=== PATIENT | female | born 1980 ===

== ENCOUNTER 2020-09-20 12:55 | Outpatient (REF) | payer OTHER, MEDICAID, SELFPAY ==
--- NOTE | 2020-09-20 13:01 | MM_ITS ---
EXAMINATION: MM DIAGNOSTIC DIGITAL BREAST TOMOSYNTHESIS, BILATERAL US DIAGNOSTIC ULTRASOUND BREAST, LEFT CLINICAL INFORMATION: 40-year-old female with intermittent burning pain left breast on and off for 2 weeks, currently without symptoms. No palpable mass or discharge. No known family history breast cancer. No prior breast imaging. The lifetime risk of breast cancer based on the Tyrer-Cuzick Model is 10%. COMPARISON: None (current study represents initial baseline exam). TECHNIQUE: Digital breast tomosynthesis is performed in both the craniocaudal and mediolateral oblique views along with computer-aided detection (CAD). Synthesized 2D images are generated from the tomosynthesis. Additional right CC and right MLO views are provided. Ultrasound left breast is targeted to the 11:00 through 5:00 position. Grayscale imaging and color Doppler are performed without and with harmonics. FINDINGS: There are scattered areas of fibroglandular density (ACR BI-RADS breast composition Category b). There are no significant masses, abnormal calcifications, or other abnormalities. The axilla and skin contours are unremarkable. There is no skin thickening or coarsening of the Eleazar's ligaments. Ultrasound left breast demonstrates no cystic or solid mass, architectural abnormality, or focal duct ectasia. No skin thickening or edema tracking in the soft tissue planes. Results are discussed with the patient at time of visit, using an interpreter and translator. MM/MM tomosynthesis diagnostic BI IMPRESSION: No mammographic evidence of malignancy or inflammatory changes. Unremarkable targeted left breast ultrasound. ASSESSMENT: BI-RADS 1: Negative RECOMMENDATION: 1. Patient's intermittent left breast pain should be based on the clinical impression. 2. Otherwise, routine annual screening mammography. This patient's information was entered into a reminder system with a target due date for their next mammogram.
== END 2020-09-20 12:56 | disposition home or self-care (01) ==
LOC: HO.MAMMO 12:55
PROVIDERS: PCP Nurse Practitioner Family; Visit Provider Nurse Practitioner Family
DX: N64.4 Mastodynia (principal); R20.8 Other disturbances of skin sensation
CPT/HCPCS: 76642; 77062; 77066

== ENCOUNTER 2020-10-13 08:00 | Outpatient (RCR) | payer OTHER, MEDICAID, SELFPAY | END 2021-02-23 09:48 | disposition other institution (70) | LOC: HO.PT 08:00 | PROVIDERS: PCP Nurse Practitioner Family; Visit Provider General Practice | DX: M25.512 Pain in left shoulder (principal) | CPT/HCPCS: 97110; 97140; 97162; 97530 ==

== ENCOUNTER 2021-10-13 10:46 | Outpatient (REF) | payer MEDICAID, OTHER, SELFPAY ==
--- NOTE | ~2021-10-13 | MM_ITS ---
EXAMINATION: MM SCREENING DIGITAL BREAST TOMOSYNTHESIS, BILATERAL CLINICAL INFORMATION: Screening. Asymptomatic. The lifetime risk of breast cancer based on the Tyrer-Cuzick Model is 7%. COMPARISON: Mammography: 09/20/2020 (baseline) TECHNIQUE: Digital breast tomosynthesis is performed in both the craniocaudal and mediolateral oblique views along with computer-aided detection (CAD). Synthesized 2D images are generated from the tomosynthesis. FINDINGS: There are scattered areas of fibroglandular density (ACR BI-RADS breast composition Category b). There are no significant masses, abnormal calcifications, or other abnormalities. Parenchymal pattern is similar to prior exam. No significant changes. MM/MM tomosynthesis screening BI IMPRESSION: There are no significant changes from prior study. ASSESSMENT: BI-RADS 1: Negative RECOMMENDATION: Routine annual mammography screening. This patient's information was entered into a reminder system with a target due date for their next mammogram.
== END 2021-10-13 10:47 | disposition home or self-care (01) ==
LOC: HO.MAMMO 10:46
PROVIDERS: Visit Provider Internal Medicine
DX: Z12.31 Encounter for screening mammogram for malignant neoplasm of breast (principal)
CPT/HCPCS: 77063; 77067

== ENCOUNTER 2023-09-18 09:09 | Outpatient (REF) | payer MEDICAID, SELFPAY | END 2023-09-18 09:10 | disposition home or self-care (01) | LOC: HO.LNP 09:09 | PROVIDERS: PCP Internal Medicine; Visit Provider Nurse Practitioner Family | DX: N39.0 Urinary tract infection, site not specified (principal); N20.0 Calculus of kidney | CPT/HCPCS: 81003; 87086; 99212 ==

== ENCOUNTER 2023-09-18 09:09 | Outpatient (AMB) | payer MEDICAID, SELFPAY ==
--- NOTE | 2023-09-18 09:23 | A.OFFVIS_ITS ---
Intake Intake Visit Reasons: Nephrolithiasis Intake Note: New Patient presents for initial visit for nephrolithiasis Urology Medications: none Blood Thinner: none Research Technician Required: Yes Research Technician Name: Merrill CookAnup TEJADA Accompanied by: Self / Same As Patient Allergies No Known Allergies Allergy (Verified 09/18/23 09:59) Medication List - Last Reconciled 09/18/23 by GEOFF Campbell cholecalciferol (vitamin D3) (Vitamin D3) 50 mcg PO DAILY diclofenac sodium 1% topical hydroxyzine HCl 25 mg PO BEDTIME PRN lamotrigine 200 mg PO BID multivit-iron sulf-folic acid 15 mg iron- 400 mcg (Tab-A-Joesph Multivitamin w- iron) 1 tab PO DAILY oxybutynin chloride ER 5 mg PO QPM simvastatin 20 mg PO QPM HPI HPI Comments History of Present Illness Details Marbella is a plesant 43 year old Faroese speaking female patient of Dr Octavio Leon. She has a past medical history of insomnia, vitamin-D deficiency, overweight, mild intermittent asthma, hypercholesteremia, heartburn, H pylori infection, and seizure disorder. She presents to the office today as a new patient for nephrolithiasis. In discussion with the patient today she reports having seeked emergency room care approximately 2 months ago at [facility] for flank pain at which time she was noted to have nephrolithiasis and recommendations were made for Urology follow-up. In discussion with the patient today she reports to be doing and feeling well. She reports flank plain has since subsided however denies having seen or collected any renal calculi. In review of patient's chart it does not appear imaging was obtain. She denies any previous history of nephrolithiasis and or surgical intervention for nephrolithiasis. She otherwise denies any bothersome urinary issues or concerns. In office urinalysis results reviewed with the patient today. 2+ leukocytes 3+ microscopic hematuria however patient reports currently on her menstrual cycle. She otherwise denies urinary urgency, urinary frequency, incontinence, nocturia, hematuria, dysuria, foul smelling urine, changes to urinary stream, flank pain, fever, and or chills. She is happy with her current voiding parameters. [facility] Medical History Primary insomnia Vitamin D deficiency Overweight Mild intermittent asthma Idiopathic generalized epilepsy Hypercholesteremia Heartburn H. pylori infection Seizure disorder Review of Systems Const Reports as per HPI Eyes Reports no additional complaints ENT Reports no additional complaints Card Reports as per HPI Resp Reports as per HPI GI Reports no additional complaints Reports no additional complaints Musc Reports as per HPI Neuro Reports as per HPI Psych Reports no additional complaints Endo Reports no additional complaints Thanh/Lymph Reports no additional complaints Aller/Immun Reports no additional complaints Physical Exam Const General: cooperative, healthy appearing, comfortable, no acute distress, well developed, alert and awake Nutritional Appearance: overweight Orientation/consciousness: patient oriented x3 Limitations: no limitations HEENT Head: Yes normal to inspection, Yes normocephalic and Yes atraumatic Ears: hearing grossly normal bilaterally Eyes General: appearance normal, both eyes and all related structures Neck Neck: Yes normal visual inspection and Yes trachea midline Chest Chest palpation & inspection: normal inspection of the chest Resp Effort & Inspection: normal respiratory effort and able to speak in complete sentences Cardio Rate: regular rate GI Inspection: Yes normal to inspection General: Yes no CVA tenderness Back/Spine/Pelvis Back: no CVA tenderness Skin General skin exam: no rashes or lesions noted Neuro General: patient oriented x3 Extrem General: Yes normal to inspection Psych Appearance: grossly normal and well kempt Mental Status: mental status grossly normal Speech and movement: Normal speech and movement present and Clear speech present Affect: normal affect Attitude: cooperative Thought process: Normal thought process present Thought content: Normal thought content present Insight: Fair insight present (Psych) Judgement: Fair judgement present (Psych) Results AMB Urinalysis, Automated UA Leukoctes 125 Beth/uL Last Edit by Deb Maloney on 09/18/23 09:38 UA Nitrite Negative Last Edit by SoothEaselilly Maloney on 09/18/23 09:38 UA Urobilinogen 0.2 mg/dL Last Edit by YellowKorner Haider on 09/18/23 09:38 UA Protein 100 mg/dL Last Edit by SoothEaselilly Maloney on 09/18/23 09:38 UA pH 8.5 Last Edit by CyrusProteoGenixlilly Maloney on 09/18/23 09:38 UA Blood 200 Mic/uL Last Edit by SoothEaselilly Maloney on 09/18/23 09:38 UA Specific [place] 1.010 Last Edit by YellowKorner Haider on 09/18/23 09:38 UA Ketone Negative Last Edit by Deb Maloney on 09/18/23 09:38 UA Bilirubin 0 mg/dL Last Edit by Deb Maloney on 09/18/23 09:38 UA Glucose 0 mg/dL Last Edit by Deb Maloney on 09/18/23 09:38 Results Reviewed Results Reviewed: Laboratory Last Values Urine pH (Auto) 8.5 09/18/23 09:30 Specific [place] (Auto) 1.010 09/18/23 09:30 Urine Protein (Auto) 100 mg/dL 09/18/23 09:30 Glucose (UA)(Auto) 0 mg/dL 09/18/23 09:30 Urine Ketones (Auto) Negative 09/18/23 09:30 Urine Blood (Auto) 200 Mic/uL 09/18/23 09:30 Urine Nitrite (Auto) Negative 09/18/23 09:30 Urine Bilirubin (Auto) 0 mg/dL 09/18/23 09:30 Urine Urobilinogen (Auto) 0.2 mg/dL 09/18/23 09:30 Leukocyte Esterase (Auto) 125 Beth/uL 09/18/23 09:30 Assessment & Plan Assessment & Plan (1) Urinary tract infection: Code(s): N39.0 - Urinary tract infection, site not specified (2) Nephrolithiasis: Code(s): N20.0 - Calculus of kidney Plan In office urinalysis results reviewed with the patient today; as noted above; will send for urine culture. Patient currently denies any bothersome urinary issues or concerns. Will obtain retroperitoneal ultrasound for further assessment evaluation. Will attempt to obtain imaging from [facility] for further assessment and evaluation as well as for continuity of care. Discussed, educated, and stressed the importance of drinking plenty of fluid daily. Discussed adding 1 oz of lemon juice to water daily. Discussed at length potential causes for nephrolithiasis Discussed UTI prevention with D mannose supplement, vitamin-C, increasing fluid intake, behavioral therapy with timed voiding, perineal hygiene and postcoital voiding, and management of constipation with stool softeners and increased fiber intake. Follow-up in 1-2 months with imaging to be completed prior; or sooner with any issues, concerns, and or questions. Orders: Orders US retroperitoneal comp Today N20.0 - Calculus of kidney, N39.0 - Urinary tract infection, site not specified Urine Culture Today N39.0 - Urinary tract infection, site not specified AMB Urinalysis Automated Today Z13.9 - Encounter for screening, unspecified Patient Instructions: The patient had an opportunity to ask questions regarding the treatment plan. All questions were answered. Physical exam, labs, and imaging were discussed and reviewed in detail. As well as risks, benefits, and discussion of treatment choices. No major barriers to understanding were identified. The patient expressed understanding and agreement with the above treatment plan. The patient was made aware they should contact our office by phone for worsening of their current condition, the appearance of new symptoms, or with any questions or concerns. Compliance is encouraged with any medications and follow up testing that is ordered. It is a privilege to be allowed the opportunity to participate in? your urological care.? Again, if you have any questions or concerns If you have any questions or concerns please do not hesitate to contact me. The office is [phone]. This note is constructed using voice recognition software. While every effort has been made to ensure accuracy echo vascular tech errors may have been included. Yours sincerely, GEOFF Campbell Coding Level of Care Code New Pt Level 3 (37090) Diagnoses Urinary tract infection N39.0 Nephrolithiasis N20.0
== END 2023-09-18 10:02 | disposition home or self-care (01) ==
PROVIDERS: PCP Internal Medicine; Visit Provider Nurse Practitioner Family
DX: N39.0 Urinary tract infection, site not specified (principal); N20.0 Calculus of kidney
CPT/HCPCS: 99203

== ENCOUNTER 2023-10-21 10:44 | Outpatient (REF) | payer MEDICAID, SELFPAY ==
--- NOTE | ~2023-10-21 | US_ITS ---
EXAMINATION: US RETROPERITONEAL COMPLETE (RENAL) CLINICAL INFORMATION: Calculus of kidney. COMPARISON: None available. TECHNIQUE: Real-time imaging of the kidneys and bladder. FINDINGS: RIGHT KIDNEY: 10.8 x 5.3 x 5.9 cm (SAG x AP x TRV). The kidney is normal in size, contour, and echogenicity. Renal cortical thickness is normal. No calculi or focal parenchymal lesions. No hydronephrosis. LEFT KIDNEY: 12.5 x 4.8 x 4.8 cm (SAG x AP x TRV). The kidney is normal in size, contour, and echogenicity. Renal cortical thickness is normal. No calculi or focal parenchymal lesions. No hydronephrosis. BLADDER: Well distended and normal. Bilateral ureteral jets are demonstrated. Prevoid bladder volume is 335.0 mL. Postvoid bladder volume is 25.7 mL. US/US retroperitoneal comp IMPRESSION: No nephrolithiasis or hydronephrosis.
== END 2023-10-21 10:45 | disposition home or self-care (01) ==
LOC: HO.US 10:44
PROVIDERS: PCP Internal Medicine; Visit Provider Nurse Practitioner Family
DX: N20.0 Calculus of kidney (principal); N39.0 Urinary tract infection, site not specified
CPT/HCPCS: 76770

== ENCOUNTER 2023-11-11 12:13 | Outpatient (AMB) | payer MEDICAID, SELFPAY ==
--- NOTE | 2023-11-11 12:18 | A.OFFVIS_ITS ---
Intake Intake Visit Reasons: Kidney stones- follow up/Ultrasound(set) Intake Note: Patient presents for follow up for Nephrolithiasis, and Ultrasound results Imagin10/21/23 Urology Medications: none Blood Thinner: none Marketing Specialist Required: Yes Marketing Specialist Name: Vinayak [id number] Accompanied by: Self / Same As Patient Allergies No Known Allergies Allergy (Verified 11/11/23 12:44) Medication List - Last Reconciled 11/11/23 by JUANIS Campbell cholecalciferol (vitamin D3) (Vitamin D3) 50 mcg PO DAILY diclofenac sodium 1% topical hydroxyzine HCl 25 mg PO BEDTIME PRN lamotrigine 200 mg PO BID multivit-iron sulf-folic acid 15 mg iron- 400 mcg (Tab-A-Joesph Multivitamin w- iron) 1 tab PO DAILY oxybutynin chloride ER 5 mg PO QPM 90 days simvastatin 20 mg PO QPM HPI HPI Comments History of Present Illness Details Marbella is a plesant 43 year old [place] speaking female patient of Dr. Meghann Leon. She has a past medical history of insomnia, vitamin-D deficiency, overweight, mild intermittent asthma, hypercholesteremia, heartburn, H pylori infection, and seizure disorder. She presents to the office today for follow-up. Of note, patient was seen approximately 6 weeks ago as a new patient for nephrolithiasis at which time a retroperitoneal ultrasound was ordered for further assessment evaluation. These results reviewed with the patient today. Bilateral kidneys with no calculi, lesions, and or hydronephrosis noted. The bladder is well distended and normal. Pre void bladder volume is approximately 335 mL. Postvoid bladder volume is approximately 25 mL. When asked she does continue to report back pain however upon assessment of the patient today it appears pain is low back no CVA tenderness noted bilaterally. When asked she does report relief of back pain with ibuprofen. Discussed following up with PCP if pain continues. She otherwise denies any bothersome urinary issues or concerns. She reports to be happy with current voiding parameters on 5 mg of oxybutynin daily. In office urinalysis results reviewed with the patient today. She otherwise denies urinary urgency, urinary frequency, incontinence, nocturia, hematuria, dysuria, foul smelling urine, changes to urinary stream, flank pain, fever, and or chills. She otherwise offers no other issues or concerns at this time. [facility] Medical History Primary insomnia Vitamin D deficiency Overweight Mild intermittent asthma Idiopathic generalized epilepsy Hypercholesteremia Heartburn H. pylori infection Seizure disorder Review of Systems Const Reports as per HPI Eyes Reports no additional complaints ENT Reports no additional complaints Card Reports as per HPI Resp Reports as per HPI GI Reports no additional complaints Reports no additional complaints Musc Reports as per HPI Neuro Reports as per HPI Psych Reports no additional complaints Endo Reports no additional complaints Thanh/Lymph Reports no additional complaints Aller/Immun Reports no additional complaints Physical Exam Const General: cooperative, healthy appearing, comfortable, no acute distress, well developed, alert and awake Nutritional Appearance: overweight Orientation/consciousness: patient oriented x3 Limitations: no limitations HEENT Head: Yes normal to inspection, Yes normocephalic and Yes atraumatic Ears: hearing grossly normal bilaterally Eyes General: appearance normal, both eyes and all related structures Neck Neck: Yes normal visual inspection and Yes trachea midline Chest Chest palpation & inspection: normal inspection of the chest Resp Effort & Inspection: normal respiratory effort and able to speak in complete sentences Cardio Rate: regular rate GI Inspection: Yes normal to inspection General: Yes no CVA tenderness Back/Spine/Pelvis Back: no CVA tenderness Skin General skin exam: no rashes or lesions noted Neuro General: patient oriented x3 Extrem General: Yes normal to inspection Psych Appearance: grossly normal and well kempt Mental Status: mental status grossly normal Speech and movement: Normal speech and movement present and Clear speech present Affect: normal affect Attitude: cooperative Thought process: Normal thought process present Thought content: Normal thought content present Insight: Fair insight present (Psych) Judgement: Fair judgement present (Psych) Results AMB Urinalysis, Automated UA Leukoctes 0 Beth/uL Last Edit by Deb Maloney on 11/11/23 12:31 UA Nitrite Negative Last Edit by Deb Maloney on 11/11/23 12:31 UA Urobilinogen 0.2 mg/dL Last Edit by Deb Maloney on 11/11/23 12:31 UA Protein 0 mg/dL Last Edit by Deb Maloney on 11/11/23 12:31 UA pH 6.5 Last Edit by Deb Maloney on 11/11/23 12:31 UA Blood 25 Mic/uL Last Edit by Deb Nanettenathan on 11/11/23 12:31 UA Specific [place] 1.015 Last Edit by Deb Nanettenatahn on 11/11/23 12:31 UA Ketone Negative Last Edit by Deb Nanettenathan on 11/11/23 12:31 UA Bilirubin 0 mg/dL Last Edit by Deb Nanettenathan on 11/11/23 12:31 UA Glucose 0 mg/dL Last Edit by Deb Nanettenathan on 11/11/23 12:31 Results Reviewed Results Reviewed: Laboratory Last Values Urine pH (Auto) 6.5 11/11/23 12:23 Specific [place] (Auto) 1.015 11/11/23 12:23 Urine Protein (Auto) 0 mg/dL 11/11/23 12:23 Glucose (UA)(Auto) 0 mg/dL 11/11/23 12:23 Urine Ketones (Auto) Negative 11/11/23 12:23 Urine Blood (Auto) 25 Mic/uL 11/11/23 12:23 Urine Nitrite (Auto) Negative 11/11/23 12:23 Urine Bilirubin (Auto) 0 mg/dL 11/11/23 12:23 Urine Urobilinogen (Auto) 0.2 mg/dL 11/11/23 12:23 Leukocyte Esterase (Auto) 0 Beth/uL 11/11/23 12:23 Date of Service: 10/21/23 EXAMINATION: US RETROPERITONEAL COMPLETE (RENAL) CLINICAL INFORMATION: Calculus of kidney. COMPARISON: None available. TECHNIQUE: Real-time imaging of the kidneys and bladder. FINDINGS: RIGHT KIDNEY: 10.8 x 5.3 x 5.9 cm (SAG x AP x TRV). The kidney is normal in size, contour, and echogenicity. Renal cortical thickness is normal. No calculi or focal parenchymal lesions. No hydronephrosis. LEFT KIDNEY: 12.5 x 4.8 x 4.8 cm (SAG x AP x TRV). The kidney is normal in size, contour, and echogenicity. Renal cortical thickness is normal. No calculi or focal parenchymal lesions. No hydronephrosis. BLADDER: Well distended and normal. Bilateral ureteral jets are demonstrated. Prevoid bladder volume is 335.0 mL. Postvoid bladder volume is 25.7 mL. IMPRESSION: No nephrolithiasis or hydronephrosis. Assessment & Plan Assessment & Plan (1) Nephrolithiasis: Code(s): N20.0 - Calculus of kidney Plan In office urinalysis results reviewed with the patient today; as noted above. Recent retroperitoneal ultrasound results reviewed with the patient today; as noted above. She currently denies any bothersome urinary issues or concerns. Continue oxybutynin 5 mg as discussed and prescribed; refill provided. She reports to be happy with current voiding parameters on 5 mg of oxybutynin daily Discussed self treatment for back pain she has been experiencing; discussed if pain continues to discussed with PCP for further workup Discussed, educated, and stressed the importance of drinking plenty of water daily. Continue adding 1 oz of lemon juice to water daily. Follow-up in 6 months with [facility]; or sooner with any issues, concerns, and or questions. Orders: Orders AMB Urinalysis Automated Today Z13.9 - Encounter for screening, unspecified Medications: Changed From oxybutynin chloride ER 5 mg PO QPM To oxybutynin chloride ER 5 mg PO QPM 90 days 90 tabs 2RF Patient Instructions: The patient had an opportunity to ask questions regarding the treatment plan. All questions were answered. Physical exam, labs, and imaging were discussed and reviewed in detail. As well as risks, benefits, and discussion of treatment choices. No major barriers to understanding were identified. The patient expressed understanding and agreement with the above treatment plan. The patient was made aware they should contact our office by phone for worsening of their current condition, the appearance of new symptoms, or with any questions or concerns. Compliance is encouraged with any medications and follow up testing that is ordered. It is a privilege to be allowed the opportunity to participate in? your urological care.? Again, if you have any questions or concerns If you have any questions or concerns please do not hesitate to contact me. The office is [phone]. This note is constructed using voice recognition software. While every effort has been made to ensure accuracy assembler steam and gas turbine errors may have been included. Yours sincerely, GEOFF Campbell Coding Level of Care Code Est Pt Level 3 (37949) Diagnoses Nephrolithiasis N20.0
== END 2023-11-11 12:43 | disposition home or self-care (01) ==
PROVIDERS: PCP Internal Medicine; Visit Provider Nurse Practitioner Family
DX: Z13.9 Encounter for screening, unspecified (principal); N20.0 Calculus of kidney
CPT/HCPCS: 99213

== ENCOUNTER → 2023-11-11 12:13 | Outpatient (BNVA) | payer MEDICAID, SELFPAY | PROVIDERS: PCP Internal Medicine; Visit Provider Nurse Practitioner Family | DX: N20.0 Calculus of kidney (principal) | CPT/HCPCS: 81003; 99212 ==

== ENCOUNTER 2023-12-23 18:11 | Outpatient (REF) | payer MEDICAID, SELFPAY | END 2023-12-23 18:12 | disposition home or self-care (01) | LOC: HO.HHCLNP 18:11 | PROVIDERS: Visit Provider Internal Medicine | DX: R31.29 Other microscopic hematuria (principal) | CPT/HCPCS: 87086; 87147 ==

== ENCOUNTER 2024-01-01 12:25 | Outpatient (REF) | payer MEDICAID, SELFPAY ==
--- NOTE | ~2024-01-01 | XR_ITS ---
EXAMINATION: XR LUMBOSACRAL SPINE CLINICAL INFORMATION: 3 month history of atraumatic pain across lower lumbar area. COMPARISON: None available. TECHNIQUE: Three views of the lumbosacral spine. FINDINGS: The lumbar vertebral bodies demonstrate normal height. Overall alignment is maintained. Mild intervertebral disc space narrowing at L5-S1. Rest of the lumbar intervertebral disc heights appear relatively preserved. Moderate facet arthropathy at L5-S1 and mild facet arthropathy at L4-L5. Surgical clips in the right upper quadrant. The paraspinous soft tissues are unremarkable. Few pelvic phleboliths. XR/XR lumbar spine 2-3V IMPRESSION: 1. No compression deformity involving the lumbar spine. Overall alignment is maintained. 2. Degenerative changes at L4-L5 and L5-S1 with moderate facet arthropathy at L5-S1.
== END 2024-01-01 12:26 | disposition home or self-care (01) ==
LOC: HO.HHCX 12:25
PROVIDERS: Visit Provider Emergency Medicine
DX: M54.50 Low back pain, unspecified (principal)
CPT/HCPCS: 72100; 87086

== ENCOUNTER 2024-05-25 10:57 | Outpatient (AMB) | payer MEDICAID, SELFPAY ==
--- NOTE | 2024-05-25 11:12 | A.OFFVIS_ITS ---
Intake Visit Reasons: 6m/PVR Intake Note: Patient presents today for follow up on: uti Urology Medications: Oxybutynin Blood Thinner: none PVR: Track Watchman Required: Yes Track Watchman Services: Track Watchman Present Track Watchman Name: Christiane [id number] Accompanied by: Self / Same As Patient Allergies No Known Allergies Allergy (Verified 05/25/24 11:29) Medication List - Last Reconciled 05/25/24 by GEOFF Campbell cholecalciferol (vitamin D3) (Vitamin D3) 50 mcg PO DAILY diclofenac sodium 1% topical hydroxyzine HCl 25 mg PO BEDTIME PRN lamotrigine 200 mg PO BID multivit-iron sulf-folic acid 15 mg iron- 400 mcg (Tab-A-Joesph Multivitamin w- iron) 1 tab PO DAILY oxybutynin chloride ER 5 mg PO QPM 90 days simvastatin 20 mg PO QPM HPI Comments Details: Marbella is a pleasant 43 year old Setswana speaking female patient of Dr. Meghann Leon. She has a past medical history of insomnia, vitamin-D deficiency, overweight, mild intermittent asthma, hypercholesteremia, heartburn, H pylori infection, and seizure disorder. She presents to the office today for follow-up of her nephrolithiasis and lower urinary tract symptoms. In discussion with the patient today she reports since her last office visit here approximately 6 months ago she continues with low-back pain at the level of her pant line. She reports following up with her PCP and workup has noted arthritis. She reports having stopped 5 mg of oxybutynin as she feels she has had no bothersome urinary issues. Previous workup has included a retroperitoneal ultrasound 10/23 noting bilateral kidneys with no calculi, lesions, and or hydronephrosis noted. The bladder is well distended and normal. Pre void bladder volume is approximately 335 mL. Postvoid bladder volume is approximately 25 mL. When asked she does continue to report back pain however upon assessment of the patient today it appears pain is low back no CVA tenderness noted bilaterally. Discussed obtaining imaging for further assessment and evaluation. She otherwise denies any bothersome urinary issues or concerns. She reports to be happy with current voiding parameters. In office urinalysis results reviewed with the patient today. She otherwise denies urinary urgency, urinary frequency, incontinence, nocturia, hematuria, dysuria, foul smelling urine, changes to urinary stream, fever, and or chills. She otherwise offers no other issues or concerns at this time. [facility] Medical History Primary insomnia Vitamin D deficiency Overweight Mild intermittent asthma Idiopathic generalized epilepsy Hypercholesteremia Heartburn H. pylori infection Seizure disorder Review of Systems Const Reports as per HPI Eyes Reports no additional complaints ENT Reports no additional complaints Card Reports as per HPI Resp Reports as per HPI GI Reports no additional complaints Reports no additional complaints Musc Reports as per HPI Neuro Reports as per HPI Psych Reports no additional complaints Endo Reports no additional complaints Thanh/Lymph Reports no additional complaints Aller/Immun Reports no additional complaints Physical Exam Const General: cooperative, healthy appearing, comfortable, no acute distress, well developed, alert and awake Nutritional Appearance: overweight Orientation/consciousness: patient oriented x3 Limitations: no limitations HEENT Head: Yes normal to inspection, Yes normocephalic and Yes atraumatic Ears: hearing grossly normal bilaterally Eyes General: appearance normal, both eyes and all related structures Neck Neck: Yes normal visual inspection and Yes trachea midline Chest Chest palpation & inspection: normal inspection of the chest Resp Effort & Inspection: normal respiratory effort and able to speak in complete sentences Cardio Rate: regular rate GI Inspection: Yes normal to inspection General: Yes no CVA tenderness Back/Spine/Pelvis Back: no CVA tenderness Skin General skin exam: no rashes or lesions noted Neuro General: patient oriented x3 Extrem General: Yes normal to inspection Psych Appearance: grossly normal and well kempt Mental Status: mental status grossly normal Speech and movement: Normal speech and movement present and Clear speech present Affect: normal affect Attitude: cooperative Thought process: Normal thought process present Thought content: Normal thought content present Insight: Fair insight present (Psych) Judgement: Fair judgement present (Psych) Office Procedures Post Void Residual Post Residual Void Post Void Residual (PVR): 0 47411-[id number] Void Residual by ultrasound Results AMB Urinalysis, Automated UA Leukoctes 0 Beth/uL Last Edit by Deb Maloney on 05/25/24 11:28 UA Nitrite Last Edit by Deb Maloney on 05/25/24 11:28 UA Urobilinogen 0.2 mg/dL Last Edit by Deb Maloney on 05/25/24 11:28 UA Protein 0 mg/dL Last Edit by Dbe Maloney on 05/25/24 11:28 UA pH 8.0 Last Edit by Deb Maloney on 05/25/24 11:28 UA Blood 10 Mic/uL Last Edit by Deb Maloney on 05/25/24 11:28 UA Specific Addy 1.015 Last Edit by Deb Maloney on 05/25/24 11:28 UA Ketone Negative Last Edit by Deb Maloney on 05/25/24 11:28 UA Bilirubin 0 mg/dL Last Edit by Deb Maloney on 05/25/24 11:28 UA Glucose 0 mg/dL Last Edit by Deb Maloney on 05/25/24 11:28 Results Reviewed Results Reviewed: Laboratory Last Values Urine pH (Auto) 8.0 05/25/24 11:20 Specific Addy (Auto) 1.015 05/25/24 11:20 Urine Protein (Auto) 0 mg/dL 05/25/24 11:20 Glucose (UA)(Auto) 0 mg/dL 05/25/24 11:20 Urine Ketones (Auto) Negative 05/25/24 11:20 Urine Blood (Auto) 10 Mic/uL 05/25/24 11:20 Urine Bilirubin (Auto) 0 mg/dL 05/25/24 11:20 Urine Urobilinogen (Auto) 0.2 mg/dL 05/25/24 11:20 Leukocyte Esterase (Auto) 0 Beth/uL 05/25/24 11:20 Assessment & Plan Assessment & Plan (1) Nephrolithiasis: Code(s): N20.0 - Calculus of kidney Category: Medical Plan In office urinalysis results reviewed with the patient today; as noted above. PVR 0 mL. Patient currently denies any bothersome urinary issues. She reports be happy with current voiding parameters. Discussed obtaining renal ultrasound for further assessment evaluation. Discussed, educated, and stressed the importance of adequate hydration relation to history of nephrolithiasis as well as overall health and well-being. Follow-up in 1-3 months with imaging to be completed prior; or sooner with any issues, concerns, and or questions. Orders: Orders AMB Post Void Residual by ultrasound Today N39.0 - Urinary tract infection, site not specified US renal BI Today N20.0 - Calculus of kidney AMB Urinalysis Automated Today Z13.9 - Encounter for screening, unspecified Medications: Discontinued oxybutynin chloride ER Discontinued Reason: Patient no longer taking 5 mg PO QPM 90 days 90 tabs 2RF Patient Instructions: The patient had an opportunity to ask questions regarding the treatment plan. All questions were answered. Physical exam, labs, and imaging were discussed and reviewed in detail. As well as risks, benefits, and discussion of treatment choices. No major barriers to understanding were identified. The patient expressed understanding and agreement with the above treatment plan. The patient was made aware they should contact our office by phone for worsening of their current condition, the appearance of new symptoms, or with any questions or concerns. Compliance is encouraged with any medications and follow up testing that is ordered. It is a privilege to be allowed the opportunity to participate in? your urological care.? Again, if you have any questions or concerns If you have any questions or concerns please do not hesitate to contact me. The office is [phone]. This note is constructed using voice recognition software. While every effort has been made to ensure accuracy community arts centre manager errors may have been included. Yours sincerely, GEOFF Campbell Coding Level of Care Code Est Pt Level 3 (62394) Diagnoses Nephrolithiasis N20.0 CPT Codes Post Residual Void - PVR CPT Code: 36260-Htjh Void Residual by ultrasound ([id number])
== END 2024-05-25 11:39 | disposition home or self-care (01) ==
PROVIDERS: PCP Internal Medicine; Visit Provider Nurse Practitioner Family
DX: Z13.9 Encounter for screening, unspecified (principal); N20.0 Calculus of kidney
CPT/HCPCS: 99213

== ENCOUNTER → 2024-05-25 10:57 | Outpatient (BNVA) | payer MEDICAID, SELFPAY | PROVIDERS: PCP Internal Medicine; Visit Provider Nurse Practitioner Family | DX: N20.0 Calculus of kidney (principal) | CPT/HCPCS: 51798; 81003; 99212 ==

== ENCOUNTER 2024-08-03 08:00 | Outpatient (REF) | payer MEDICAID, SELFPAY | END 2024-08-03 08:01 | disposition home or self-care (01) | LOC: HO.US 08:00 | PROVIDERS: PCP Internal Medicine; Visit Provider Nurse Practitioner Family | DX: N20.0 Calculus of kidney (principal) | CPT/HCPCS: 76775 ==

== ENCOUNTER 2024-08-14 13:13 | Outpatient (REF) | payer MEDICAID, SELFPAY ==
[2024-08-17 15:17] LABS: H Pylori Breath Test Negative (Negative)
== END 2024-08-14 13:14 | disposition home or self-care (01) ==
LOC: HO.HHCLNP 13:13
PROVIDERS: Visit Provider Internal Medicine
DX: R12 Heartburn (principal)
CPT/HCPCS: 83013

== ENCOUNTER → 2024-10-01 09:00 | Outpatient (BNV) | payer MEDICAID, SELFPAY | PROVIDERS: PCP Internal Medicine; Visit Provider Internal Medicine | DX: Z12.31 Encounter for screening mammogram for malignant neoplasm of breast (principal) | CPT/HCPCS: 77063; 77067 ==

== ENCOUNTER 2024-10-01 09:01 | Outpatient (REF) | payer MEDICAID, SELFPAY | END 2024-10-01 09:02 | disposition home or self-care (01) | LOC: HO.MAMMO 09:01 | PROVIDERS: PCP Internal Medicine; Visit Provider Internal Medicine | DX: Z12.31 Encounter for screening mammogram for malignant neoplasm of breast (principal) | CPT/HCPCS: 77063; 77067 ==

== ENCOUNTER 2024-10-08 08:32 | Outpatient (AMB) | payer MEDICAID, SELFPAY ==
--- NOTE | 2024-10-08 08:32 | A.OFFVIS_ITS ---
Intake Visit Reasons: follow up US(set) Intake Note: Patient presents today for follow up on: uti and ultrasound results * Imaging Completed: 08/03/24 Urology Medications: none Blood Thinner: none PVR: 0ml's Material Attendant Required: Yes Material Attendant Services: Material Attendant Present Material Attendant Name: [id number] Accompanied by: Son Allergies No Known Allergies Allergy (Verified 10/08/24 09:07) Medication List - Last Reconciled 10/08/24 by GEOFF Campbell cholecalciferol (vitamin D3) (Vitamin D3) 50 mcg PO DAILY diclofenac sodium 1% topical hydroxyzine HCl 25 mg PO BEDTIME PRN lamotrigine 200 mg PO BID multivit-iron sulf-folic acid 15 mg iron- 400 mcg (Tab-A-Joesph Multivitamin w- iron) 1 tab PO DAILY simvastatin 20 mg PO QPM HPI Comments Details: Marbella is a pleasant 43 year old Albanian speaking female patient of Dr. Meghann Leon who is accompanied by her son at [facility] office visit. She has a past medical history of insomnia, vitamin-D deficiency, overweight, mild intermittent asthma, hypercholesteremia, heartburn, H pylori infection, and seizure disorder. She presents to the office today for follow-up of her nephrolithiasis and lower urinary tract symptoms. In discussion with the patient today she reports to be doing and feeling well. She denies having had any bothersome urinary issues or concerns her last office visit here. Recent renal imaging results reviewed with the patient today. 08/23 bilateral kidneys with no hydronephrosis or renal calculi noted. She reports to be happy with current voiding parameters. In office urinalysis results reviewed with the patient today. She otherwise denies urinary urgency, urinary frequency, incontinence, nocturia, hematuria, dysuria, foul smelling urine, changes to urinary stream, fever, and or chills. She otherwise offers no other issues or concerns at this time. [facility] Medical History Primary insomnia Vitamin D deficiency Overweight Mild intermittent asthma Idiopathic generalized epilepsy Hypercholesteremia Heartburn H. pylori infection Seizure disorder Review of Systems Const All systems reviewed & are unremarkable except as noted in HPI and below Physical Exam Const General: cooperative, healthy appearing, comfortable, no acute distress, well developed, alert and awake Nutritional Appearance: overweight Orientation/consciousness: patient oriented x3 Limitations: no limitations HEENT Head: Yes normal to inspection, Yes normocephalic and Yes atraumatic Ears: hearing grossly normal bilaterally Eyes General: appearance normal, both eyes and all related structures Neck Neck: Yes normal visual inspection and Yes trachea midline Chest Chest palpation & inspection: normal inspection of the chest Resp Effort & Inspection: normal respiratory effort and able to speak in complete sentences Cardio Rate: regular rate GI Inspection: Yes normal to inspection General: Yes no CVA tenderness Back/Spine/Pelvis Back: no CVA tenderness Skin General skin exam: no rashes or lesions noted Neuro General: patient oriented x3 Extrem General: Yes normal to inspection Psych Appearance: grossly normal and well kempt Mental Status: mental status grossly normal Speech and movement: Normal speech and movement present and Clear speech present Affect: normal affect Attitude: cooperative Thought process: Normal thought process present Thought content: Normal thought content present Insight: Fair insight present (Psych) Judgement: Fair judgement present (Psych) Office Procedures Post Void Residual Post Residual Void Post Void Residual (PVR): 0 [id number] Void Residual by ultrasound Results AMB Urinalysis, Automated UA Leukoctes 0 Beth/uL Last Edit by Deb Maloney on 10/08/24 08:49 UA Nitrite Negative Last Edit by Deb Maloney on 10/08/24 08:49 UA Urobilinogen 0.2 mg/dL Last Edit by Deb Maloney on 10/08/24 08:49 UA Protein 0 mg/dL Last Edit by Deb Maloney on 10/08/24 08:49 UA pH 6.0 Last Edit by Deb Maloney on 10/08/24 08:49 UA Blood 80 Mic/uL Last Edit by Deb Maloney on 10/08/24 08:49 UA Specific [place] 1.015 Last Edit by Deb Maloney on 10/08/24 08:49 UA Ketone Negative Last Edit by Deb Maloney on 10/08/24 08:49 UA Bilirubin 0 mg/dL Last Edit by Deb Maloney on 10/08/24 08:49 UA Glucose 0 mg/dL Last Edit by Deb Maloney on 10/08/24 08:49 Results Reviewed Results Reviewed: Laboratory Last Values Urine pH (Auto) 6.0 10/08/24 08:37 Specific [place] (Auto) 1.015 10/08/24 08:37 Urine Protein (Auto) 0 mg/dL 10/08/24 08:37 Glucose (UA)(Auto) 0 mg/dL 10/08/24 08:37 Urine Ketones (Auto) Negative 10/08/24 08:37 Urine Blood (Auto) 80 Mic/uL 10/08/24 08:37 Urine Nitrite (Auto) Negative 10/08/24 08:37 Urine Bilirubin (Auto) 0 mg/dL 10/08/24 08:37 Urine Urobilinogen (Auto) 0.2 mg/dL 10/08/24 08:37 Leukocyte Esterase (Auto) 0 Beth/uL 10/08/24 08:37 Date of Service: 08/03/24 Procedure(s): US renal BI FINDINGS: RIGHT KIDNEY: 11.3 x 4.9 x 5.5 cm (SAG x AP x TRV). No hydronephrosis. No renal calculi. Renal cortical thickness is normal. Limited visualization. . LEFT KIDNEY: 11.3 x 4.9 x 5.9 cm (SAG x AP x TRV). No hydronephrosis. No renal calculi. Renal cortical thickness is normal. Limited visualization. IMPRESSION: No hydronephrosis. No renal calculi. Assessment & Plan Assessment & Plan (1) Urinary tract infection: Code(s): N39.0 - Urinary tract infection, site not specified Category: Medical (2) Nephrolithiasis: Code(s): N20.0 - Calculus of kidney Category: Medical Plan In office urinalysis results reviewed the patient today; as noted above. Recent renal imaging results with the patient today; as noted above. Patient currently denies any bothersome urinary issues or concerns. She reports be happy with current voiding parameters. Discussed, educated, and stressed the importance of adequate hydration relation to nephrolithiasis, recurrent urinary tract infections, and overall health and well-being. Continue adding 1 oz of lemon juice to water daily. Will obtain renal ultrasound in 6 months. Follow-up in 6 months with imaging and PVR; or sooner with any issues, concerns, and or questions. Orders: Orders AMB Post Void Residual by ultrasound Today N39.0 - Urinary tract infection, site not specified US renal BI 6 Months N20.0 - Calculus of kidney AMB Urinalysis Automated Today Z13.9 - Encounter for screening, unspecified Patient Instructions: The patient had an opportunity to ask questions regarding the treatment plan. All questions were answered. Physical exam, labs, and imaging were discussed and reviewed in detail. As well as risks, benefits, and discussion of treatment choices. No major barriers to understanding were identified. The patient expressed understanding and agreement with the above treatment plan. The patient was made aware they should contact our office by phone for worsening of their current condition, the appearance of new symptoms, or with any questions or concerns. Compliance is encouraged with any medications and follow up testing that is ordered. It is a privilege to be allowed the opportunity to participate in? your urological care.? Again, if you have any questions or concerns If you have any questions or concerns please do not hesitate to contact me. The office is [phone]. This note is constructed using voice recognition software. While every effort has been made to ensure accuracy third steel pourer errors may have been included. Yours sincerely, GEOFF Campbell Coding Level of Care Code Est Pt Level 3 (94561) Diagnoses Urinary tract infection N39.0 Nephrolithiasis N20.0 CPT Codes Post Residual Void - PVR CPT Code: 32892-Wqvt Void Residual by ultrasound ([id number])
== END 2024-10-08 09:11 | disposition home or self-care (01) ==
PROVIDERS: PCP Internal Medicine; Visit Provider Nurse Practitioner Family
DX: N39.0 Urinary tract infection, site not specified (principal); N20.0 Calculus of kidney; Z13.9 Encounter for screening, unspecified
CPT/HCPCS: 99213

== ENCOUNTER → 2024-10-08 08:32 | Outpatient (BNVA) | payer MEDICAID, SELFPAY | PROVIDERS: PCP Internal Medicine; Visit Provider Nurse Practitioner Family | DX: N39.0 Urinary tract infection, site not specified (principal); N20.0 Calculus of kidney | CPT/HCPCS: 51798; 81003; 99212 ==

== ENCOUNTER 2025-03-09 10:30 | Outpatient (REF) | payer MEDICAID, SELFPAY ==
[2025-03-09 11:20] LABS: MANUAL DIFF FLAG NO
[2025-03-09 11:23] LABS: Basophils Percent Auto 0.6 % (0-2); Eosinophils Absolute Auto 0.1 X10*3/uL (0.0-0.4); Eosinophils Percent Auto 2.2 % (0-4); Hematocrit 38.8 % (37.0-47.0); Hemoglobin 13.4 g/dl (12.0-16.0); Imm Gran Abs Auto 0.02 X10*3/uL (0.00-0.03); Imm Gran Pct Auto 0.4 % (0.0-0.4); Lymphocytes Absolute Auto 1.9 X10*3/uL (1.2-4.9); Lymphocytes Percent Auto 35.5 % (20-40); Mean Corpuscular HGB Conc 34.5 g/dl (31.0-35.0); Mean Platelet Volume 10.1 fL (9.4-12.3); Monocytes Absolute Auto 0.4 X10*3/uL (0.1-1.2); Monocytes Percent Auto 7.4 % (2-11); Neutrophils Absolute Auto 2.9 x10*3/uL (2.0-8.3); Neutrophils Percent Auto 53.9 % (45-73); Platelet Count 305 X10*3/uL (160-400); Red Blood Count 4.62 X10*6/uL (4.20-5.50); Red Cell Distribution Width 13.2 % (11.0-16.0); White Blood Count 5.4 X10*3/uL (4.8-10.8)
[2025-03-09 11:34] LABS: Estimated Average Glucose 105 mg/dL; Hemoglobin A1c % 5.3 % (<6.0)
[2025-03-09 12:06] LABS: Alanine Aminotransferase 119 U/L (0-31); Albumin Level 4.8 g/dL (3.5-5.0); Alkaline Phosphatase 173 U/L (39-117); Anion Gap 12 (12-20); Aspartate Amino Transferase 62 U/L (5-31); Bilirubin Total 0.4 mg/dL (0.0-1.0); Blood Urea Nitrogen 9 mg/dL (9-16); Carbon Dioxide 28 mmol/L (22-29); Chloride 107 mmol/L (96-108); Cholesterol 238 mg/dL (<200); Estimated Glomerular Filt Rate > 60; Glucose Random 91 mg/dL (60-115); HDL Cholesterol 50 mg/dL (>40); LDL Cholesterol Calculated 141 mg/dL (<100); Potassium 4.3 mmol/L (3.3-5.1); Sodium 143 mmol/L (135-145); Total Protein 7.5 g/dL (6.5-8.0); Triglycerides 235 mg/dL (<150)
[2025-03-09 12:08] LABS: Vitamin D 25-OH Total 51.5 ng/mL (>30)
--- OUTSIDE RECORDS SUMMARY | 2025-03-09 12:14 | XMS_ITS | Encounter Summary ---
Author Organization [employer] Address [address] [facility] [address] [place] [address] Care Team Providers Care Chemical Detection Expert Name Role Phone Lanette Butler MD Primary Care Provide r Roque Dumont Unavailable Unavail able Reason for Visit * Reason Onset Date Comments Chart prep 03/04/2025 Encounter Details Date Type Department Care Team ([facility] st Contact Info) Description 03/04/2025 Telephone [facility] [address] [place], [place] [phone] Lanette Butler MD [address] [place], [place] [phone] Chart prep Social History Tobacco Use Types Packs/Day Years Used Date Smoking Tobacco: Never Passive Smoke Exposure: Never Smokeless Tobacco: Never Alcohol Use Standard Drinks/Week Comments Never 0 (1 standard drink = 0.6 oz pur e alcohol) Depression Answer Date Recorded Patient Health Questionnaire-9 Score 0 08/14/2024 Patient Health Questionnaire-9 Score 0 08/14/2024 Last PHQ-9: Questionnaire Data Not on file 1 10/14/2023 Housing Stability Answer Date Recorded What is your housing situation today? I have mikel sims 08/06/[address] you li ve. Do you have problems with any of the following? None of the above 08/06/2024 Food Insecurity Answer Date Recorded Within the past 12 months, y ou worried that your food would run out before you got money to buy more: Never True 08/06/2024 Within the past 12 months,th e food you bought just didn't last and you didn't have enough money to get more: Never True 03/2024 Transportation Answer Date Recorded In the past 12 months, has l ack of transportation kept you from medical appts, meetings, work or from getting things needed for daily living? No 08/06/2024 Utilities Answer Date Recorded In the past 12 months, has t he electric, gas, oil or water company threatened to shut off services in your home? No 08/06/2024 Depression Answer Date Recorded Patient Health Questionnaire-2 Score 0 08/14/2024 Internet Access Answer Date Recorded Internet Access Q1 Yes 08/06/2024 Internet Access Q2 Not on file 08/06/2024 Comments No Sex and Gender Information Value Date Recorded Sex Assigned at Female 07/30/2022 10:17 AM EDT Legal Sex Female 10:17 AM EDT Gender Identity Female 07/30/2022 10:17 AM EDT Sexual Orientation Straight 07/30/2022 10 :17 AM EDT documented as of this encounter Miscellaneous Notes * Telephone Encounter - Lizabeth Woodall MA - 03/04/2025 1:42 PM EDT Chart Prep Labs: done Images: done Referrals: complete Vaccines due: Hep B and DTAP Screenings: STI screening Overdue care gaps: Disability screen documented in this encounter Plan of Treatment Not on file documented as of this encounter Visit Diagnoses Not on filedocumented in this encounter Additional Health Concerns Assessment Noted Time PHQ-9 Depression Total Score: 0 08/14/20 24 9:18 AM EST documented as of this encounter Care Teams Chemical Detection Expert Relationship Specialty Start Date End Date Lanette Butler MD [address] [place] [id number] PCP - General Family Medicine 11/04/20 Roque Dumont Community Health Worker 08/27/23 documented as of this encounter
[2025-03-09 13:12] LABS: HIV AB/AG Nonreactive (Nonreactive); HIV Num 1 0.06 S/CO (0.00-0.99); ~HepC Num1 0.11 S/CO (0.00-0.79); ~Hepatitis C Antibody Nonreactive (Nonreactive)
== END 2025-03-09 10:31 | disposition home or self-care (01) ==
LOC: HO.HHCL 10:30
PROVIDERS: Visit Provider Internal Medicine
DX: G40.909 Epilepsy, unspecified, not intractable, without status epilepticus (principal)
CPT/HCPCS: 36415; 80053; 80061; 82306; 83036; 84443; 85025; 86803; 87389

== ENCOUNTER 2025-04-21 12:23 | Outpatient (REF) | payer MEDICAID, SELFPAY ==
--- NOTE | ~2025-04-21 | US_ITS ---
CLINICAL HISTORY: N20.0 - Calculus of kidney US Renal Comparison: None provided Findings: Right kidney normal size and echotexture, 11.0 cm length. Left kidney normal size and echotexture, 12.2 cm length. No hydronephrosis of either kidney. Normal color Doppler IMPRESSION: 1. Normal kidneys. This document has been electronically signed by: Jolynn Weinberg MD on 04/22/2025 15:31:18
--- OUTSIDE RECORDS SUMMARY | 2025-04-21 12:51 | XMS_ITS | Encounter Summary ---
Author Organization [employer] Address [address] [facility] [address] [place] [address] Care Team Providers Care Cost Estimating Manager Name Role Phone Lanette Butler MD Primary Care Provide r Roque Dumont Unavailable Unavail able Encounter Details Date Type Department Care Team ([facility] st Contact Info) Description 06/04/2023 Orders Only [facility] [address] [place], [place] [phone] Danuta Shaikh LPN Social History Tobacco Use Types Packs/Day Years Used Date Smoking Tobacco: Never Assessed Comments Unknown Sex and Gender Information Value Date Recorded Sex Assigned at Female 07/30/2022 10:17 AM EDT Legal Sex Female 10:17 AM EDT Gender Identity Female 07/30/2022 10:17 AM EDT Sexual Orientation Straight 07/30/2022 10 :17 AM EDT documented as of this encounter Plan of Treatment Not on file documented as of this encounter Visit Diagnoses Not on filedocumented in this encounter Care Teams Cost Estimating Manager Relationship Specialty Start Date End Date Lanette Butler MD [address] [place] [address] PCP - General Family Medicine 11/04/20 Roque Dumont Community Health Worker 08/27/23 documented as of this encounter
--- OUTSIDE RECORDS SUMMARY | 2025-04-21 12:51 | XMS_ITS | Clinical Summary ---
Author Organization [facility] Address [address] [address] Phone Care Team Providers Care Pile Driver Engineer Name Role Phone Lanette Butler MD Primary Care Provider Allergies No known active allergies Medications SIMVASTATIN ORAL Take 20 mg by mouth daily. Active IMIPRAMINE HCL ORAL Take 10 mg by mouth nightly at bedtime. Active LAMOTRIGINE ORAL Take 200 mg by mouth 2 (two) times a day. Active tamsulosin (FLOMAX) 0.4 mg Cap Take 1 capsule (0.4 mg total) by mouth daily for 14 days. 14 capsule 3 Active oxyBUTYnin (DITROPAN-XL) 5 MG 24 hr tablet 3 Active TAB-A-PB MULTIVITAMIN W-IRON 15 mg iron- 400 mcg Tab Take 1 tablet by mouth every morning. 3 Active VITAMIN D3 50 mcg (2,000 unit) capsule Take 1 capsule by mouth every morning. 3 Active acetaminophen (TYLENOL) 325 mg tablet Take 2 tablets (650 mg total) by mouth every 4 (four) hours as needed. 0 3 Active ibuprofen (ADVIL,MOTRIN) 200 MG tablet Take 2 tablets (400 mg total) by mouth every 6 (six) hours as needed for pain (specific location in comments). 3 Active hydrOXYzine (ATARAX) 25 MG tablet TAKE 1 TABLET BY MOUTH EVERY DAY AT BEDTIME NEEDED FOR ITCHING 3 Active diclofenac sodium (VOLTAREN) 1 % Gel APPLY 1 INCH TOPICALLY TO AFFECTED AREA(S) TWICE DAILY IN THE MORNING AND AT BEDTIME NEEDED FOR PAIN Active Active Problems Problem Noted Date Diagnosed Date S/P laparoscopic cholecystectomy 08/14/2023 Primary insomnia 07/03/2023 08/14/2023 Overview (08/14/2023): Last Assessment & Plan: Patient reports tylenol PM helps her Counseling about sleep hygiene I will do trial of hydroxyzine Calculus of kidney 06/21/2023 08/14/2023 Overview (08/14/2023): Last Assessment & Plan: continue flomax for 2-3 weeks + ibuprofen + tylenol PRN pain Use diclofenac gel PRN back pain Refer to urology H. pylori infection 06/20/2023 08/14/2023 Heartburn 06/20/2023 08/14/2023 Mild intermittent asthma 06/20/2023 023 Overview (08/14/2023): Last Assessment & Plan: Patient educated to avoid triggers Symptoms are control c/w same interventions Seizure disorder 06/20/2023 08/14/2023 Overview (08/14/2023): Last Assessment & Plan: No recent episodes (last one 5 years ago) She takes her medication every day Hypercholesterolemia 08/08/2015 08/14/2023 Idiopathic generalized epilepsy 08/08/2015 08/14/2023 Overweight 08/08/2015 08/14/2023 Vitamin D deficiency 08/08/2015 08/14/2023 Resolved Problems Problem Noted Date Diagnosed Date Resolved Date Calcification of gallbladder 06/20/2023 08/14/2023 Calculus of gallbladder with out cholecystitis without obstruction 06/20/2023 08/14/2023 Immunizations Immunization Administration Dates Next Due COVID-19 (Pre-07/22) Pfizer Vaccine, mRNA, PF Influenza Quadrivalent MDCK Preservative Free IM 08/31/2020 Influenza Quadrivalent Preservative Free IM 07/31 Pneumococcal polysaccharide PPSV23 06/09/2019 Social History Tobacco Use Types Packs/Day Years Used Date Smoking Tobacco: Never Smokeless Tobacco: Never Tobacco Cessation:Counseling Given: Not Answered Alcohol Use Standard Drinks/Week Comments Never 0 (1 standard drink = 0.6 oz pur e alcohol) Denies Education Answer Date Recorded Are you interested in more education? Not on man e 01/25/2023 Are you concerned about learning? Not on file 01/25/2023 No 01/25/2023 No 01/25/2023 Digital Access Answer Date Recorded No 02/25/2023 No 02/25/2023 Reliable internet access at home? Not on file 02/25/2023 Device with a working camera? Not on file Intimate Partner Violence Answer Date R ecorded Are you denied basic needs s uch as food, clothing, or medical care? No 08/01/2023 In the past 12 months have y ou been in a relationship with a person who hurts, threatens, or tries to control you? No 08/01/2023 Are you denied basic needs s uch as food, clothing, or medical care? No 08/01/2023 In the past 12 months have y ou been in a relationship with a person who hurts, threatens, or tries to control you? No 08/01/2023 Comments Unknown Sex and Gender Information Value Date Recorded Sex Assigned at Female 11/30/2019 7:31 AM EST Legal Sex Female 9:22 PM EDT Gender Identity Female 11/30/2019 7:31 AM EST Sexual Orientation Choose not to disclose 2019 7:31 AM EST Last Filed Vital Signs Vital Sign Reading Time Taken Comments Blood Pressure 118/70 08/14/2023 9:24 AM EST Pulse 66 08/14/2023 9:24 AM EST Temperature 36.7 C (98 F) 08/14/2023 9:24 AM EST Respiratory Rate 20 08/01/2023 4:20 PM EDT Oxygen Saturation 99% 08/14/2023 9:2 4 AM EST Inhaled Oxygen Concentration - - Weight 59 kg (130 lb) 08/01/2023 11:01 AM EDT Simultaneous filing. User may not have seen previous data. Height 162.6 cm (5' 4 ) 08/01/2023 11:0 1 AM EDT Simultaneous filing. User may not have seen previous data. Body Mass Index 22.31 08/01/2023 11:01 AM EDT Plan of Treatment Health Maintenance Due Date Last Done Comments DEPRESSION SCREENING 1992 PAP SMEAR 2001 PNEUMOCOCCAL VACCINES (0-49 years) (2 of 2 - PCV) 06/09/2020 06/09/2019 MAMMOGRAM 2020 Adult Td,Tdap Booster 04/06/2021 04/06/2011 , 04/11/2007 COVID-19 VACCINE (4 - 2023-2 5 season) 2024 10/03/2021, 01/25/2021, 01/04/2021 HEPATITIS C SCREENING Completed 07/09/2023 , 07/09/2023 HIV ONE-TIME SCREENING (18-6 5 YEARS) Completed 07/09/2023 SMOKING STATUS SCREENING (On ce After 26 Yrs) Completed 08/14/2023 HEPATITIS A VACCINES Aged Out No long er eligible based on patient's age to complete this topic HIB VACCINES Aged Out No longer eligi ble based on patient's age to complete this topic MENINGOCOCCAL VACCINES (ACWY) Aged Out No longer eligible based on patient's age to complete this topic MENINGOCOCCAL VACCINES (B) Aged Out N o longer eligible based on patient's age to complete this topic Medical Devices Not on file Procedures Procedure Name Priority Date/Time Associated Diagnosis Comments HEPATITIS C ANTIBODY, QUALITATIVE Routine 07/09/2023 9:38 AM EDT Need for hepatitis C screening test from Last 3 Months or Most Recently Relevant to Health Maintenance Results * Hepatitis C antibody, qualitative (07/09/2023 9:38 AM EDT) HCV NON-REACTIV E NON-REACTI VE [facility] Blood 07/09/2023 9:38 AM EDT 07/09/2023 9:45 AM EDT us Lanette Leon MD LAB BLOOD ORD ERABLES Final Result [address] [address] from Last 3 Months or Most Recently Relevant to Health Maintenance Insurance Care Teams Pile Driver Engineer Relationship Specialty Start Date End Date Lanette Butler MD [address] [place] [id number] PCP - General Internal Medicine 06/14/23 Additional Source Comments The information contained in this document represents components of the legal health record. It is not the complete legal health record.[facility]
== END 2025-04-21 12:24 | disposition home or self-care (01) ==
LOC: HO.US 12:23
PROVIDERS: PCP Internal Medicine; Visit Provider Nurse Practitioner Family
DX: N20.0 Calculus of kidney (principal)
CPT/HCPCS: 76775

== ENCOUNTER → 2025-04-21 12:30 | Outpatient (BNV) | payer MEDICAID, SELFPAY | PROVIDERS: PCP Internal Medicine; Visit Provider Radiology Diagnostic Radiology | DX: N20.0 Calculus of kidney (principal) | CPT/HCPCS: 76775 ==

== ENCOUNTER 2025-05-04 08:46 | Outpatient (REF) | payer MEDICAID, SELFPAY ==
--- NOTE | ~2025-05-04 | US_ITS ---
EXAMINATION: US ABDOMEN COMPLETE WITH LIVER ELASTOGRAPHY HISTORY: persistent elevated LFTS TECHNIQUE: Real-time grayscale ultrasound imaging of the abdomen was performed and images were reviewed. COMPARISON: Correlation is made with a renal ultrasound dated 04/21/2025. FINDINGS: Liver: The right lobe of the liver measures 14.4 cm in size. The left lobe of the liver measures 9.7 cm in size. The liver demonstrates increased echotexture, consistent with steatosis. No focal mass or intrahepatic biliary ductal dilatation is identified. There is normal hepatopedal flow in the portal vein. Ultrasound elastography of the liver was performed with 10 separate measurements of the liver parenchyma with the patient in the supine position. Measurements were obtained approximately 2 cm below Tika's capsule and perpendicular to the capsule. The median shear wave velocity is 1.63 m/s. The interquartile range/median (IQR/median) is 0.13. Gallbladder and biliary tree: The gallbladder is surgically absent. The common bile duct measures 8 mm in diameter. Kidneys: The right kidney measures 10.9 cm in length. The left kidney measures 12.5 cm in length. The kidneys are unremarkable, without evidence of masses, hydronephrosis, or calculi. Pancreas: The pancreatic head, neck, and body are unremarkable. The pancreatic tail is obscured by bowel gas. Spleen: The spleen is normal in size and contour, measuring 9.4 cm in length. Abdominal aorta and inferior vena cava: The visualized portions of the abdominal aorta and inferior vena cava are normal in caliber. There is no free fluid in the abdomen. US/US abdomen comp w elastography IMPRESSION: Hepatic steatosis. The median shear wave velocity in the liver is 1.63 m/s, corresponding to a median liver stiffness of 8.14 kPa. The IQR/median value is 0.13. This is indicative of a quality data set. Findings are indicative of a low elastography value which rules out advanced chronic liver disease in asymptomatic patients. REFERENCE: Society of Radiologists in Ultrasound Liver Stiffness Thresholds (2019): LIVER STIFFNESS THRESHOLDS: *Shear wave velocity less than 1.3 m/s (Liver Stiffness equal or less than 5 kPa): High probability of being normal. *Shear wave velocity less than 1.7 m/s (Liver Stiffness less than 9 kPa): In the absence of other known clinical signs, rules out compensated advanced chronic liver disease. *Shear wave velocity between 1.7-2.1 m/s (Liver Stiffness 9-13 kPa): Suggestive of compensated advanced chronic liver disease but need further test for confirmation. *Shear wave velocity between 2.1-2.4 m/s (Liver Stiffness 13-17 kPa): Rules in compensated advanced chronic liver disease. *Shear wave velocity greater than 2.4 m/s (Liver Stiffness over 17 kPa): Suggestive of clinically significant portal hypertension. QUALITY OF DATA SET: SIGNIFICANT CHANGE FROM PRIOR EXAM: Significant change if liver stiffness measurement is 10% or greater from prior exam. OTHER CONSIDERATIONS: The stage of liver fibrosis may be overestimated in the setting of acute hepatitis, liver inflammation, elevated liver function tests, hepatic vascular congestion, obstructive cholestasis, non-fasting state, and infiltrative diseases such as amyloidosis and lymphoma. In some patients with NAFLD, the liver stiffness thresholds for compensated advanced chronic liver disease may be lower. In causes other than viral hepatitis and NAFLD, liver stiffness thresholds are not well established. Electronically signed by: Billy Riddle MD 05/04/2025 09:33 AM EDT
--- OUTSIDE RECORDS SUMMARY | 2025-05-04 09:00 | XMS_ITS | Encounter Summary ---
Author Organization [employer] Address [address] [facility] [address]t [place] [address] Care Team Providers Care Hardboard Coating Machine Operator Name Role Phone Lanette Butler MD Primary Care Provide r Roque Dumont Unavailable Unavail able Encounter Details Date Type Department Care Team ([facility] st Contact Info) Description 06/04/2023 Orders Only [facility] MED & PEDS [address] [place], [place] [phone] Danuta Shaikh LPN Social History Tobacco Use [...] on filedocumented in this encounter Care Teams Hardboard Coating Machine Operator Relationship Specialty Start Date End Date Lanette Butler MD [address] [place] [address] PCP - General Family Medicine 11/04/20 Roque Dumont Community Health Worker 08/27/23 documented as of this encounter
--- OUTSIDE RECORDS SUMMARY | 2025-05-04 09:00 | XMS_ITS | Clinical Summary ---
Author Organization [facility] Address [address] [address] Phone Care Team Providers Care Greenhouse Technician Name Role Phone Lanette Butler MD Primary [...] AM EDT) HCV NON-REACTIV E NON-REACTI VE [facility] Blood 07/09/2023 9:38 AM EDT 07/09/2023 9:45 AM EDT us Lanette Leon MD LAB BLOOD ORD ERABLES Final Result [address] [address] from Last 3 Months or Most Recently Relevant to Health Maintenance Insurance Care Teams Greenhouse Technician Relationship Specialty Start Date End Date Lanette Butler MD [address] [place] [id number] PCP - General Internal Medicine 06/14/23 Additional Source Comments The information contained in this document represents components of the legal health record. It is not the complete legal health record.[facility]
== END 2025-05-04 08:47 | disposition home or self-care (01) ==
LOC: HO.US 08:46
PROVIDERS: PCP Internal Medicine; Visit Provider Internal Medicine
DX: R79.89 Other specified abnormal findings of blood chemistry (principal)
CPT/HCPCS: 76700; 76981

== ENCOUNTER → 2025-05-04 08:48 | Outpatient (BNV) | payer MEDICAID, SELFPAY | PROVIDERS: PCP Internal Medicine; Visit Provider Radiology Diagnostic Radiology | DX: K76.0 Fatty (change of) liver, not elsewhere classified (principal) | CPT/HCPCS: 76700 ==

== ENCOUNTER 2025-05-17 10:11 | Outpatient (AMB) | payer MEDICAID, SELFPAY ==
--- NOTE | 2025-05-17 10:12 | A.OFFVIS_ITS ---
Intake Visit Reasons: Renal Ultrasound Review Intake Note: Patient presents today for follow up on:RENAL ULTRASOUND * Imaging Completed: 04/22/25 Urology Medications: none Blood Thinner: none PVR: 0ml's Single Stroke Preformer Required: Yes Single Stroke Preformer Services: Single Stroke Preformer Present Single Stroke Preformer Name: Dayron [id number] Accompanied by: Self / Same As Patient Allergies No Known Allergies Allergy (Verified 05/17/25 10:31) Medication List - Last Reconciled 05/17/25 by GEOFF Campbell cholecalciferol (vitamin D3) (Vitamin D3) 50 mcg PO DAILY diclofenac sodium 1% topical hydroxyzine HCl 25 mg PO BEDTIME PRN lamotrigine 200 mg PO BID multivit-iron sulf-folic acid 15 mg iron- 400 mcg (Tab-A-Joesph Multivitamin w- iron) 1 tab PO DAILY simvastatin 20 mg PO QPM HPI Comments Details: Marbella is a pleasant 44 year old Greek speaking female patient of Dr. Meghann Leon. She has a past medical history of insomnia, vitamin-D deficiency, overweight, mild intermittent asthma, hypercholesteremia, heartburn, H pylori infection, and seizure disorder. She presents to the office today for follow-up of her nephrolithiasis and lower urinary tract symptoms. In discussion with the patient today she reports to be doing and feeling well. She denies having had any bothersome urinary issues or concerns her last office visit here. Recent renal imaging results reviewed with the patient today. 04/23 bilateral kidneys are normal in size and echotexture. No hydronephrosis or renal calculi noted bilaterally. She reports to be happy with current voiding parameters. In office urinalysis results reviewed with the patient today. 3+ leukocytes negative nitrates. She denies any UTI like symptoms. When asked she reports to be drinking plenty of water with lemon juice daily. She otherwise denies urinary urgency, urinary frequency, incontinence, nocturia, hematuria, dysuria, foul smelling urine, changes to urinary stream, fever, and or chills. She otherwise offers no other issues or concerns at this time. [facility] Medical History Primary insomnia Vitamin D deficiency Overweight Mild intermittent asthma Idiopathic generalized epilepsy Hypercholesteremia Heartburn H. pylori infection Seizure disorder Review of Systems Const All systems reviewed & are unremarkable except as noted in HPI and below Physical Exam Const General: cooperative, healthy appearing, comfortable, no acute distress, well developed, alert and awake Nutritional Appearance: overweight Orientation/consciousness: patient oriented x3 Limitations: language barrier HEENT Head: Yes normal to inspection, Yes normocephalic and Yes atraumatic Ears: hearing grossly normal bilaterally Eyes General: appearance normal, both eyes and all related structures Neck Neck: Yes normal visual inspection and Yes trachea midline Chest Chest palpation & inspection: normal inspection of the chest Resp Effort & Inspection: normal respiratory effort and able to speak in complete sentences Cardio Rate: regular rate GI Inspection: Yes normal to inspection General: Yes no CVA tenderness Back/Spine/Pelvis Back: no CVA tenderness Skin General skin exam: no rashes or lesions noted Neuro General: patient oriented x3 Extrem General: Yes normal to inspection Psych Appearance: grossly normal and well kempt Mental Status: mental status grossly normal Speech and movement: Normal speech and movement present and Clear speech present Affect: normal affect Attitude: cooperative Thought process: Normal thought process present Thought content: Normal thought content present Insight: Fair insight present (Psych) Judgement: Fair judgement present (Psych) Office Procedures Post Void Residual Post Residual Void Post Void Residual (PVR): 0 [id number] Void Residual by ultrasound Results AMB Urinalysis, Automated UA Leukoctes 500 Beth/uL Last Edit by SEAN Chairez on 05/17/25 10:27 UA Nitrite Negative Last Edit by SEAN Chairez on 05/17/25 10:27 UA Urobilinogen 3.5 mg/dL Last Edit by SEAN Chairez on 05/17/25 10:2 7 UA Protein 15 mg/dL Last Edit by SEAN Chairez on 05/17/25 10:27 UA pH 7.5 Last Edit by SEAN Chairez on 05/17/25 10:27 UA Blood 25 Mic/uL Last Edit by SEAN Chairez on 05/17/25 10:27 UA Specific Holland 1.010 Last Edit by SEAN Chairez on 05/17/25 10: 27 UA Ketone Negative Last Edit by SEAN Chairez on 05/17/25 10:27 UA Bilirubin 0 mg/dL Last Edit by SEAN Chairez on 05/17/25 10:27 UA Glucose 0 mg/dL Last Edit by SEAN Chairez on 05/17/25 10:27 Results Reviewed Results Reviewed: Laboratory Last Values Urine pH (Auto) 7.5 05/17/25 10:26 Specific Holland (Auto) 1.010 05/17/25 10:26 Urine Protein (Auto) 15 mg/dL 05/17/25 10:26 Glucose (UA)(Auto) 0 mg/dL 05/17/25 10:26 Urine Ketones (Auto) Negative 05/17/25 10:26 Urine Blood (Auto) 25 Mic/uL 05/17/25 10:26 Urine Nitrite (Auto) Negative 05/17/25 10:26 Urine Bilirubin (Auto) 0 mg/dL 05/17/25 10:26 Urine Urobilinogen (Auto) 3.5 mg/dL 05/17/25 10:26 Leukocyte Esterase (Auto) 500 Beth/uL 05/17/25 10:26 Date of Service: 04/21/25 Procedure(s): US renal BI Findings: Right kidney normal size and echotexture, 11.0 cm length. Left kidney normal size and echotexture, 12.2 cm length. No hydronephrosis of either kidney. Normal color Doppler IMPRESSION: 1. Normal kidneys. Assessment & Plan Assessment & Plan (1) Urinary tract infection: Code(s): N39.0 - Urinary tract infection, site not specified Category: Medical (2) Nephrolithiasis: Code(s): N20.0 - Calculus of kidney Category: Medical Plan In office urinalysis results reviewed the patient today; as noted above. PVR 0 mL Recent renal imaging results with the patient today; as noted above. Patient currently denies any bothersome urinary issues or concerns. She reports be happy with current voiding parameters. Discussed, educated, and stressed the importance of continuing to drink plenty of water daily in relation to nephrolithiasis, recurrent urinary tract infections, and overall health and well-being Continue adding 1 oz of lemon juice to water daily. Will obtain renal ultrasound in 6 months. Follow-up in 6 months with imaging and PVR; or sooner with any issues, concerns, and or questions. Orders: Orders AMB Post Void Residual by ultrasound Today N20.0 - Calculus of kidney AMB Urinalysis Automated Today Z13.9 - Encounter for screening, unspecified US renal BI 6 Months N20.0 - Calculus of kidney Patient Instructions: The patient had an opportunity to ask questions regarding the treatment plan. All questions were answered. Physical exam, labs, and imaging were discussed and reviewed in detail. As well as risks, benefits, and discussion of treatment choices. No major barriers to understanding were identified. The patient expressed understanding and agreement with the above treatment plan. The patient was made aware they should contact our office by phone for worsening of their current condition, the appearance of new symptoms, or with any questions or concerns. Compliance is encouraged with any medications and follow up testing that is ordered. It is a privilege to be allowed the opportunity to participate in? your urological care.? Again, if you have any questions or concerns If you have any questions or concerns please do not hesitate to contact me. The office is [phone]. This note is constructed using voice recognition software. While every effort has been made to ensure accuracy steel post installer errors may have been included. Yours sincerely, GEOFF Campbell Coding Level of Care Code Est Pt Level 3 (14678) Diagnoses Urinary tract infection N39.0 Nephrolithiasis N20.0 CPT Codes Post Residual Void - PVR CPT Code: 65736-Dcjf Void Residual by ultrasound ([id number])
--- OUTSIDE RECORDS SUMMARY | 2025-05-17 11:08 | XMS_ITS | Clinical Summary ---
Author Organization [facility] Address [address] [address] Phone Care Team Providers Care Gas Producer Name Role Phone Lanette Butler MD Primary [...] AM EDT) HCV NON-REACTIV E NON-REACTI VE [facility] Blood 07/09/2023 9:38 AM EDT 07/09/2023 9:45 AM EDT us Lanette Leon MD LAB BLOOD ORD ERABLES Final Result [address] [address] from Last 3 Months or Most Recently Relevant to Health Maintenance Insurance Care Teams Gas Producer Relationship Specialty Start Date End Date Lanette Butler MD [address] [place] [id number] PCP - General Internal Medicine 06/14/23 Additional Source Comments The information contained in this document represents components of the legal health record. It is not the complete legal health record.[facility]
--- OUTSIDE RECORDS SUMMARY | 2025-05-17 11:08 | XMS_ITS | Encounter Summary ---
Author Organization [employer] Address [address] [facility] 7t [place] [address] Care Team Providers Care Production Potter Name Role Phone Lanette Butler MD Primary Care Provide r Roque Dumont Unavailable Unavail able Encounter Details Date Type Department Care Team ([facility] st Contact Info) Description 06/04/2023 Orders Only [facility] CHC MED & PEDS [address] [place], [place] [phone] Danuta Shaikh LPN Social History Tobacco Use [...] on filedocumented in this encounter Care Teams Production Potter Relationship Specialty Start Date End Date Lanette Butler MD [address] [place] [address] PCP - General Family Medicine 11/04/20 Roque Dumont Community Health Worker 08/27/23 documented as of this encounter
== END 2025-05-17 10:40 | disposition home or self-care (01) ==
LOC: HO.HUSH 10:11
PROVIDERS: PCP Internal Medicine; Visit Provider Nurse Practitioner Family
DX: N39.0 Urinary tract infection, site not specified (principal); N20.0 Calculus of kidney; Z13.9 Encounter for screening, unspecified
CPT/HCPCS: 99213

== ENCOUNTER → 2025-05-17 10:11 | Outpatient (BNVA) | payer MEDICAID, SELFPAY | PROVIDERS: PCP Internal Medicine; Visit Provider Nurse Practitioner Family | DX: N39.0 Urinary tract infection, site not specified (principal); N20.0 Calculus of kidney; Z79.899 Other long term (current) drug therapy | CPT/HCPCS: 51798; 81003; 99212 ==